=== PATIENT | female | born 1940 | race Caucasian/White ===

== ENCOUNTER → 2016-12-13 | Outpatient (CLI) | payer MEDICARE ==
--- NOTE | 2016-12-14 12:46 | RAD ---
DATE: 12/13/2016 EXAM: MAMMO LUPILLO SCREENING BILATERAL HISTORY: Routine screening COMPARISON: 12/07/2015 The breast parenchyma is heterogeneously dense, which could reduce sensitivity of mammography. Breast parenchyma level C. FINDINGS: 2-D and 3-D tomosynthesis imaging was performed in CC and MLO projections. No new or enlarging breast densities are seen. Benign type calcifications are again noted. No suspicious microcalcifications have developed. IMPRESSION: Stable mammograms without evidence of malignancy. BI-RADS CATEGORY: 2 BENIGN FINDING(S) RECOMMENDED FOLLOW-UP: 12M 12 MONTH FOLLOW-UP PQRS compliance statement: Patient information was entered into a reminder system with a target due date for the next mammogram. Mammography is a sensitive method for finding small breast cancers, but it does not detect them all and is not a substitute for careful clinical examination. A negative mammogram does not negate a clinically suspicious finding and should not result in delay in biopsying a clinically suspicious abnormality. "Our facility is accredited by the [employer] Mammography Program."
== END | disposition home or self-care (01) ==
LOC: KCIC MAMMO 11:13
PROVIDERS: ATTEND Family Medicine
DX: Z12.31 Encounter for screening mammogram for malignant neoplasm of breast (principal)
CPT/HCPCS: 77063; G0202; 77067

== ENCOUNTER → 2017-01-30 | Outpatient (CLI) | payer MEDICARE ==
--- NOTE | 2017-01-30 15:35 | RAD ---
Examination: 3 views of the right hand History: History of right hand pain Comparison: None available Findings: There is mild joint space loss identified at metacarpophalangeal, proximal interphalangeal joints. There is severe joint space loss identified in the fifth DIP joint likely due to degeneration. 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
== END | disposition home or self-care (01) ==
LOC: RAD 13:18
PROVIDERS: ATTEND Family Medicine
DX: M19.041 Primary osteoarthritis, right hand (principal)
CPT/HCPCS: 73130

== ENCOUNTER → 2018-01-29 | Outpatient (CLI) | payer MEDICARE ==
--- NOTE | 2018-01-30 18:13 | KCIC ---
Bilateral digital screening mammograms with 3-D tomosynthesis: Reason for examination: Routine screening. Comparison is made to previous studies dated 12/13/2016 and 12/07/2015. Bilateral mammograms in CC and oblique projections were obtained with 2-D imaging and 3-D tomosynthesis imaging on a Siemens Inspiration unit and reviewed on the workstation. Interpretation was made with the benefit of CAD. The skin and nipples show no abnormalities. No abnormal axillary lymph nodes are seen. The breast parenchyma is heterogeneously dense. (Breast density: Category C.) There appears to be a focus of architectural distortion in the posterior lateral aspect of the right breast. There is also suggestion of some focal nodularity at the posterior medial aspect of the right breast. Further evaluation with coned compression views and right breast ultrasound is recommended. There also appears to be some increased nodularity in the lower inner quadrant of the left breast anteriorly. Recommend further evaluation with ultrasound. There continues to be some nodularity to the parenchyma medially in the right breast which is unchanged. There are no other dominant masses, suspicious calcifications or architectural distortion. Impression: Architectural distortion suggested posterior laterally in the right breast and new nodular density suggested posterior medially in the right breast. Recommend further evaluation with coned compression views and ultrasound. Increasing nodularity suggested at the lower inner quadrant of the left breast anteriorly. Recommend further evaluation with ultrasound. Your patient's mammogram demonstrates that she has dense breast tissue (breast density category C or D), which could hide abnormalities, and if she has other risk factors for breast cancer that have been identified, she might benefit from supplemental screening tests that may be suggested by you as her ordering physician. Dense breast tissue, in and of itself, is a relatively common condition. Therefore, this information is not provided to cause undue concern, but rather to raise your awareness and to promote discussion with your patient regarding the presence of other risk factors, in addition to dense breast tissue. Your patient's mammography results will be sent to her. BI-RAD Category 0: Incomplete. Needs additional imaging evaluation. "Our facility is accredited by the [employer] Mammography Program." This patient's information has been entered into a reminder system for the patient to be notified with the results of her examination and a target date for the next mammogram. Electronically signed by: Petra Florence MD (01/30/2018 6:09 PM) [id number]
== END | disposition home or self-care (01) ==
LOC: KCIC MAMMO 15:14
PROVIDERS: ATTEND Family Medicine
DX: Z12.31 Encounter for screening mammogram for malignant neoplasm of breast (principal)
CPT/HCPCS: 77063; 77067

== ENCOUNTER → 2018-02-14 | Outpatient (CLI) | payer MEDICARE ==
--- NOTE | 2018-02-14 15:05 | KCIC ---
Right breast diagnostic digital mammograms: Reason for examination: Nodular parenchymal density on screening mammogram. Comparison is made to mammographic exam dated 01/29/2018. Coned compression views were obtained in CC and oblique projections. With these additional views, a nodular density is seen at the 1:00 position posteriorly and there is still some parenchymal density suggested posterior laterally on cc view. Further evaluation with ultrasound will follow. IMPRESSION: Nodularity persists posteriorly in the right breast. Ultrasound to follow. BI-RADS Category 0: Incomplete. Needs additional imaging evaluation. Bilateral breast ultrasound: Bilateral whole breast ultrasound including evaluation of all 4 quadrants and the retroareolar and axillary regions of both breasts was performed. In the right breast at the 1:00 position 6.5 cm from the nipple, there is a 7.4 x 5.3 mm hypoechoic lesion which is taller than wide and shows irregular margination and some mild posterior acoustic shadowing. Malignancy is suspected and ultrasound-guided biopsy is recommended. No other focal abnormalities are seen in the right breast. No abnormal appearing lymph nodes are seen in the right axilla. In the left breast, there is dense fibroglandular tissue with some minimal fibrocystic type changes. No suspicious lesions are seen. No abnormal appearing lymph nodes are seen in left axilla. IMPRESSION: Suspicious nodule at the 1:00 position 6.5 cm from the nipple in the right breast measuring 7.4 mm in greatest dimension. Malignancy is suspected and ultrasound-guided biopsy is recommended. BI-RADS Category 5: Highly suggestive of malignancy. These findings have been discussed with the patient and the patient was requested to follow-up with her clinician. The patient's physician office was called on multiple attempts without reaching the medical staff. "Our facility is accredited by the [employer] Mammography Program." Electronically signed by: Petra Florence MD (02/14/2018 3:02 PM) [id number]
== END | disposition home or self-care (01) ==
LOC: KCIC MAMMO 12:46
PROVIDERS: ATTEND Family Medicine
DX: R92.8 Other abnormal and inconclusive findings on diagnostic imaging of breast (principal)
CPT/HCPCS: 76641; 77065

== ENCOUNTER → 2018-03-10 | Outpatient (CLI) | payer MEDICARE ==
--- NOTE | 2018-03-12 13:22 | PATHOLOGY ---
[facility] Accession Number: [id number] . 01 Material submitted: . RIGHT BREAST . 01 Clinical history: . Right breast mass . 02 Diagnosis: Breast tissue, right breast mass needle biopsies: - INVASIVE DUCTAL CARCINOMA, GRADE 2. SEE COMMENT. (JPM:doffer; 03/11/2018) MBR/03/11/2018 . 02 Comment: Sections of the right breast mass needle biopsy reveal an invasive mammary carcinoma. The tumor shows little tubule formation with tumor cells largely present in solid nests and cords. The tumor shows moderate nuclear pleomorphism and mitotic activity. There is no lymphovascular tumor invasion. There is a rare tumor associated microcalcification. The invasive carcinoma measures up to approximately 0.9 cm in greatest dimension on the glass slide. Breast prognostic studies will be obtained on block A2, the results of which will be reported separately. The case is also examined by Dr. Garrison, who concurs with the diagnosis. . (JPM:doffer; 03/11/2018) . 02 Electronically signed: . Art Villalba MD, Pathologist NPI- [id number] . 01 Gross description: . Received in formalin labeled "Crista Ellison, right breast," and additionally labeled on requisition as " 10 o'clock, 6.5 c FN," are multiple needle cores of yellow-durham fibrofatty tissue measuring 2.0 x 0.9 x 0.3 cm in aggregate dimensions. The tissue submitted in its entirety in cassette A1 through A3. The cold ischemic time is 5 minutes. The total formalin fixation time is 10 hours and 25 minutes. (TSD; 03/10/2018) TOB/TOB . 02 Pathologist provided ICD-10: C50.911 . 02 CPT . 328643 Specimen Comment: A courtesy copy of this report has been sent to Specimen Comment: [phone], , . Specimen Comment: Report sent to ,DR MOSLEY / DR ARRIAGA Specimen Comment: A duplicate report has been generated due to demographic updates. Performed at: 01 [facility] [address], [place] [id number] MD Steve Gracia MD Phone: [phone] Performed at: 02 [facility] [address] [place], [place] [id number] MD Art Villalba MD Phone: [phone]
--- NOTE | 2018-03-14 09:41 | RAD ---
Ultrasound-guided right breast biopsy, 03/10/2018: History: Suspicious nodule The ultrasound study from 02/14/2018 demonstrated a suspicious nodule at the 1:00 location. Under local anesthesia, aseptic conditions and sonographic guidance the [employer] biopsy instrument was passed into the posterior aspect of this lesion via a medial approach. Multiple 12-gauge vacuum-assisted core samples were obtained. A biopsy marker was deposited at the biopsy site. The biopsy instrument was then removed and hemostasis obtained. Two-view postprocedural digital mammograms were then obtained to document position of the biopsy marker. The patient tolerated the procedure well and left the department in good condition. The subsequent pathology report indicated the presence of invasive ductal carcinoma. This is considered to be a concordant finding. Note: The findings were called to personnel in Dr. Mary's office at 9:36 AM on 03/14/2018.
== END | disposition home or self-care (01) ==
LOC: US 14:35
PROVIDERS: ATTEND Surgery
DX: C50.211 Malignant neoplasm of upper-inner quadrant of right female breast (principal); Z79.899 Other long term (current) drug therapy; Z85.828 Personal history of other malignant neoplasm of skin; Z90.49 Acquired absence of other specified parts of digestive tract; Z98.890 Other specified postprocedural states; Z82.49 Family history of ischemic heart disease and other diseases of the circulatory system; Z72.89 Other problems related to lifestyle; Z88.2 Allergy status to sulfonamides; Z88.5 Allergy status to narcotic agent; Z88.8 Allergy status to other drugs, medicaments and biological substances; Z98.49 Cataract extraction status, unspecified eye
CPT/HCPCS: 19083; 77065; 88305; 88361; C1713; 19081; 76942

== ENCOUNTER → 2020-05-30 | Outpatient (CLI) | payer MEDICARE ==
[2018-04-15 11:00] VITALS: BP 115/50
[~2020-05-30] MED LIST: ASPI81TA50 PO; CALC-627 PO; CHOL10003 PO; CLOR3.75 PO; DICY10CA3 PO; DILT120C71 PO; FEXO180T16 PO; FLUT9.9S NS; HYDR-2761 PO; HYDR50TA9 PO; LOSA100T14 PO; POTA10TA12 PO; PRIM50TA PO; PROP60TA PO
--- NOTE | 2020-05-30 16:08 | RAD ---
EXAM: ABDOMINAL ULTRASOUND. HISTORY: Elevated liver transaminase level. COMPARISON: None. FINDINGS: Sonographic evaluation of the abdomen was performed. The liver appears normal in parenchymal echotexture. There are no focal lesions. The spleen measures 9.8 cm. The gallbladder is absent. The common duct measures 7.5 mm. Pancreas is obscured by bowel gas. The right kidney measures 9.3 cm. Cortical thickness and echogenicity are preserved. There is no hydr onephrosis. 3.5 cm superior pole right renal cyst and septated 2.9 cm inferior right renal cyst. The left kidney measures 11.1 cm. Cortical thickness and echogenicity are preserved. There is no hydronep hrosis. Exophytic superior pole 5 cm left renal cyst. Renal cysts require no additional imaging follo w-up based on these imaging findings. The visualized portions of the abdominal aorta and inferior vena cava are grossly patent and normal i n caliber. IMPRESSION: 1. Extrahepatic biliary dilation to 7.5 mm status post previous cholecystectomy. Otherwise no acute f indings to explain elevated transaminases. If indicated, additional imaging by abdominal MRI with MRC P could be pursued. Electronically signed by: Deyvi Torres MD (05/30/2020 4:06 PM) [id number]
== END ==
LOC: US 09:18
PROVIDERS: ATTEND Family Medicine
DX: R74.01 Elevation of levels of liver transaminase levels (principal); N28.1 Cyst of kidney, acquired; Z90.49 Acquired absence of other specified parts of digestive tract
CPT/HCPCS: 76700